=== PATIENT | male | born 1975 | race Caucasian/White ===

== ENCOUNTER 2017-08-05 16:20 | Observation (INO) | payer OTHER ==
[~2017-08-05 16:20] MED LIST: ASPIRIN COATED 81 MG TABLET.EC PO ONE
--- NOTE | 2017-08-05 17:31 | PDOC ---
Attending Attestation - Resident Resident Name: RoderickvaldobaljitDion - ED Attending Attestation I have performed the following: I have examined & evaluated the patient, The case was reviewed & discussed with the resident, I agree w/resident's findings & plan, Exceptions are as noted - HPI HPI: 08/05/17 18:06 42-year-old male presents with diffuse anterior chest wall pain with left arm paresthesias for the past several days as well as epigastric discomfort and right upper quadrant pain for the past month. - Physicial Exam PE: 08/05/17 18:06 Patient is awake and alert, nontoxic-appearing, afebrile, hemodynamically stable. HEAD: Normocephalic; atraumatic EYES: PERRL; EOM intact; no scleral icterus CARD: Normal S1, S2; no murmurs, rubs, or gallops RESP: Normal chest excursion with respiration; breath sounds clear and equal bilaterally; no wheezes, rhonchi, or rales ABD: Soft, non-distended; non-tender; liver is palpable 3 fingerbreadths below the costal margin;, no palpable hernias EXT: Normal ROM in all four extremities; non-tender to palpation; distal pulses intact SKIN: Warm, dry, no rash NEURO: No focal neurological deficiencies. - Medical Decision Making 08/05/17 18:07 42-year-old male presents to the ER with chest discomfort associated with left arm paresthesias, and abdominal pain for the past month. Differential diagnoses includes ACS versus pancreatitis versus hepatitis versus cholelithiasis versus esophagitis versus costochondritis. EKG reveals normal sinus rhythm at the rate of 77, with left axis deviation and Q waves in 3 and aVF; no old EKGs available for comparison. We'll obtain CBC/CMP/lipase/cardiac profile. We'll administer aspirin, Pepcid and Maalox. Will obtain right upper quadrant ultrasound to rule out hepatomegaly; we'll obtain chest x-ray to rule out cardiomegaly pneumothorax. Will reassess. Heart Score/ECG Review - History History: Moderately suspicious - Electrocardiogram EKG: Non specific repolarization disturbance - Age Age: </= 45 - Risk Factors Based on the list above the patient has:: No risk factors known - Troponin Troponin: </= normal limit - Score Heart Score - Total: 2
[2017-08-05] MEDS ORDERED: FAMOTIDINE 20 MG/50 ML IVPB 50 ML IVPB ONE ×2 (18:04→18:26)
[2017-08-05] MEDS ORDERED: MAG HYDROX/AL HYDROX/SIMETH 355 ML ORAL.SUSP PO ONE (18:04)
[2017-08-05 18:26] LABS: BASOPHIL 0.7 % (0-2.0); EOSINOPHIL 4.3 % (0-4.5); MCH 28.8 pg (25.7-33.7); MEAN CELL VOLUME 87.3 fl (80-96); MEAN PLT VOLUME 10.1 fl (7.5-11.1); NEUTROPHILS 60.2 % (42.8-82.8); PLATELET COUNT 176 K/MM3 (134-434); RDW 13.2 % (11.9-15.9); WHITE BLOOD COUNT 6.2 K/mm3 (4.0-10.0)
[2017-08-05] MEDS ORDERED: MAG HYDROX/AL HYDROX/SIMETH 30 ML UNIT-DOSE CUP ONE (18:26)
[2017-08-05] MEDS ORDERED: ASPIRIN 81 MG CHEWABLE TABLETS ONE (18:26)
--- NOTE | 2017-08-05 18:30 | PDOC ---
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 The patient states that his pain started 3 days ago associated with a stomach ache. The patient states that his pain is across his chest and feels like he is going to suffocate. He describes it as a sharp pain that is intermittent, does not radiate, and is worse with deep breaths. The patient is also complaining of abdominal pain that is epigastric, does not radiate, and is worse with fatty foods. No sick contacts, no recent travel. Denies fever, chills, nausea, vomiting, dysuria, rash. Past History - Past Medical History Allergies/Adverse Reactions: Allergies Allergy/AdvReac Type Severity Reaction Status Date / Time No Known Allergies Allergy Verified 08/05/17 16:41 Home Medications: Ambulatory Orders Aspirin Coated [Ecotrin -] 81 mg PO DAILY #30 tab 08/06/17 Ranitidine [Zantac -] 150 mg PO DAILY tablet 08/06/17 Thyroid Disease: No - Suicide/Smoking/Psychosocial Hx Smoking History: Never smoked Have you smoked in the past 12 months: No Information on smoking cessation initiated: No Hx Alcohol Use: No Drug/Substance Use Hx: No Substance Use Type: None Review of Systems - Review of Systems Able to Perform ROS?: Yes Is the patient limited Cymro proficient: No Constitutional: No: Chills, Fever HEENTM: No: Eye Pain, Ear Pain, Nose Pain Respiratory: Yes: Cough. No: See HPI, Shortness of Breath Cardiac (ROS): Yes: Chest Pain. No: Palpitations ABD/GI: No: Constipated, Diarrhea, Nausea, Vomiting : No: Burning, Dysuria, Pain Musculoskeletal: No: Back Pain, Muscle Pain Integumentary: No: Lesions, Lumps, Rash Neurological: No: Headache, Numbness, Tingling, Weakness *Physical Exam - Vital Signs Last Vital Signs Temp Pulse Resp BP Pulse Ox 97.6 F 84 18 120/74 100 08/05/17 16:38 08/05/17 16:38 08/05/17 16:38 08/05/17 16:38 08/05/17 16:38 - Physical Exam General Appearance: Yes: Nourished, Appropriately Dressed. No: Apparent Distress HEENT: positive: Normal Voice, Hearing Grossly Normal Respiratory/Chest: positive: Lungs Clear, Normal Breath Sounds. negative: Chest Tender, Accessory Muscle Use Cardiovascular: positive: Regular Rhythm, Regular Rate, S1, S2. negative: Diastolic Murmur, Systolic Murmur Gastrointestinal/Abdominal: positive: Tender (Tender to deep palpation over epigastric region), Flat, Soft, Hepatomegaly, Other (Negative duke's sign). negative: Distended, Guarding, Rebound Musculoskeletal: negative: CVA Tenderness, CVA Tenderness (R), CVA Tenderness (L ) Extremity: positive: Normal Inspection, Normal Range of Motion Integumentary: positive: Dry, Warm. negative: Clammy, Diaphoresis Neurologic: positive: Fully Oriented, Alert, Normal Mood/Affect, Motor Strength 5/5 Heart Score/ECG Review - History History: Moderately suspicious - Electrocardiogram EKG: Non specific repolarization disturbance - Age Age: </= 45 - Risk Factors Based on the list above the patient has:: No risk factors known - Troponin Troponin: </= normal limit - Score Heart Score - Total: 2 - ECG Intrepretation Rhythm: Regular Rhythm - Beaufort Beaufort: Left Beaufort Deviation - ECG Impressions Normal ECG: Yes ED Treatment Course - LABORATORY CBC & Chemistry Diagram: 08/06/17 06:40 08/06/17 06:40 - RADIOLOGY Radiology Studies Ordered: Category Date Time Status CHEST PA & LAT [RAD] Stat Radiology 08/05/17 17:29 Ordered ABDOMEN US -LIMITED [US] Stat Ultrasound 08/05/17 18:05 Ordered Medical Decision Making - Medical Decision Making 08/05/17 18:33 The patient is a 42M with a PMH of GERD who is presenting with chest and abdominal pain. The CP has a low likelyhood of ACS but it is still on my differential, as well as pancreatitis, cholecystitis. Will order labs and imaging and reassess. 08/05/17 19:55 Labs WNL. U/S negative for RUQ process. 08/05/17 22:18 Patient signed out to hospitalist for ACS workup in obs tele. *DC/Admit/Observation/Transfer Diagnosis at time of Disposition: Chest pain Qualifiers: Chest pain type: unspecified Qualified Code(s): R07.9 - Chest pain, unspecified - Discharge Dispostion Disposition: HOME Condition at time of disposition: Stable
[2017-08-05 19:15] LABS: ALBUMIN 3.8 g/dl (3.4-5.0); ANION GAP 8 (8-16); BILIRUBIN,TOTAL 0.2 mg/dL (0.2-1.0); CALCIUM 8.6 mg/dL (8.5-10.1); CO2 29 mmol/L (21-32); CREATININE 1.3 mg/dL (0.7-1.3); GLUCOSE,RANDOM 92 mg/dL (74-106); SGOT/AST 17 U/L (15-37); SGPT/ALT 39 U/L (12-78); TOT PROT 7.1 g/dl (6.4-8.2)
[2017-08-05 19:18] LABS: ALK PHOS 36 U/L (45-117); CPK 85 IU/L (39-308); TROPONIN I < 0.02 ng/ml (0.00-0.05)
[2017-08-06] MEDS ORDERED: RANITIDINE HCL 150 MG TABLET (FP) PO ONE (00:29)
--- NOTE | 2017-08-06 00:45 | PN ---
Teaching Attending Note Name of Resident: Mason Llamas ATTENDING PHYSICIAN STATEMENT I saw and evaluated the patient. I reviewed chart, data, and imaging. I reviewed the resident's note and discussed the case with the resident. I agree with the resident's findings and plan as documented with modifications below. SUBJECTIVE: 42-year-old male c/o right sided chest pain which began yesterday around midday. Chest pain was not related to exertion. It lasted briefly and subsided. No history of any cardiac issues. Denied nausea, vomiting, diarrhea, trauma. Troponin negative x1. Lipase wnl OBJECTIVE: Last Vital Signs Temp Pulse Resp BP Pulse Ox 97.6 F 84 18 120/74 100 08/05/17 16:38 08/05/17 16:38 08/05/17 16:38 08/05/17 16:38 08/05/17 16:38 general- NAD, conversing, follows commands heent- no sinus tenderness, neck supple, no masses cv s1+S2+ RRR chest-CTA b/l abdomen -soft, nt skin -no rashes noted Abnormal Lab Results 08/05/17 18:17 Alkaline Phosphatase 36 L CXR - wnl troponin negative x1 EKG - Non specific repolarization disturbance ASSESSMENT AND PLAN: #Atypical chest pain in overwise healthy 42yo male. Chest may be costochonditis , GERD. ACS should be r/o troponin negative x1. -admit to tele/observation -trend troponins -ASA 81mg daily -nexium 40mg po daily #DVT ppx -SCDs # Diet -2g Na diet
--- NOTE | 2017-08-06 01:01 | HP ---
CHIEF COMPLAINT: chest pain PCP: HISTORY OF PRESENT ILLNESS: Patient is [place]araguan speaking. history obtained via global supply chain director ([id number]) The patient is a 42 yo m w/ no PMH who presents to the ED c/o a 1 week history of pain in his chest and abdomen. The patient states that he was sitting down when he had an abrupt onset of sharp pain in his chest and abdomen. The pain lasted approximately 1/2 hr, then went away on its own. Since this initial event , he has been having a similar pain intermittently. The pain is worse with inspiration and associated with headache. The patient has had previous episodes of this pain and saw a doctor about it, but was lost to follow up. Patient denies nausea, vomiting, diarrhea, palpitations arm weakness or numbness, shortness of breath, dyspnea on exertion.. ER course was notable for: (1) negative trop x1 (2) EKG showing nonspecific changes (3) Recent Travel: none PAST MEDICAL HISTORY: none PAST SURGICAL HISTORY: -hernia repair -appendectomy Social History: Smoking: denies Alcohol: socially Drugs: denies Family History: denies Allergies No Known Allergies Allergy (Verified 08/05/17 16:41) HOME MEDICATIONS: Home Medications Medication Instructions Recorded NK [No Known Home Medication] 08/05/17 REVIEW OF SYSTEMS CONSTITUTIONAL: Absent: fever, chills, diaphoresis, generalized weakness, malaise, loss of appetite, weight change HEENT: Absent: rhinorrhea, nasal congestion, throat pain, throat swelling, difficulty swallowing, mouth swelling, ear pain, eye pain, visual changes CARDIOVASCULAR: Absent: syncope, palpitations, irregular heart rate, lightheadedness, peripheral edema RESPIRATORY: Absent: cough, shortness of breath, dyspnea with exertion, orthopnea, wheezing, stridor, hemoptysis GASTROINTESTINAL: Absent: abdominal distension, nausea, vomiting, diarrhea, constipation, melena, hematochezia GENITOURINARY: Absent: dysuria, frequency, urgency, hesitancy, hematuria, flank pain, genital pain MUSCULOSKELETAL: Absent: myalgia, arthralgia, joint swelling, back pain, neck pain SKIN: Absent: rash, itching, pallor HEMATOLOGIC/IMMUNOLOGIC: Absent: easy bleeding, easy bruising, lymphadenopathy, frequent infections ENDOCRINE: Absent: unexplained weight gain, unexplained weight loss, heat intolerance, cold intolerance NEUROLOGIC: Absent: focal weakness or paresthesias, dizziness, unsteady gait, seizure, mental status changes, bladder or bowel incontinence PSYCHIATRIC: Absent: anxiety, depression, suicidal or homicidal ideation, hallucinations. PHYSICAL EXAMINATION GENERAL: Awake, alert, and fully oriented, in no acute distress. HEAD: Normal with no signs of trauma. EYES: Pupils equal, round and reactive to light, extraocular movements intact, sclera anicteric, conjunctiva clear. No lid lag. NECK: Normal range of motion, supple without lymphadenopathy, JVD, or masses. LUNGS: Breath sounds equal, clear to auscultation bilaterally. No wheezes, and no crackles. No accessory muscle use. HEART: Regular rate and rhythm, normal S1 and S2 without murmur, rub or gallop. ABDOMEN: Soft, nontender, not distended, normoactive bowel sounds, no guarding, no rebound, no masses. UPPER EXTREMITIES: 2+ pulses, warm, well-perfused. No cyanosis. No clubbing. No peripheral edema. LOWER EXTREMITIES: 2+ pulses, warm, well-perfused. No calf tenderness. No peripheral edema. NEUROLOGICAL: Cranial nerves II-X intact. Normal speech. gait not observed. PSYCHIATRIC: Cooperative. Good eye contact. Appropriate mood and affect. SKIN: Warm, dry, normal turgor, no rashes or lesions noted, normal capillary refill. ASSESSMENT/PLAN: The patient is a 42 yo m w/ no pnh who presents to the ed c/o chest and abdominal pain. He is admitted for observation. #Chest and abdominal pain likely 2/2 GERD r/o ACS -trend troponin stat and in AM -zantac prn pain -s/p ASA 162 x1 in ED -observe overnight -cbc, cmp, mag, phos in AM #FEN -no fluids indicated -monitor lytes -regular diet #prophy -SCDs #dispo -admit overnight for obs Visit type - Emergency Visit Emergency Visit: Yes ED Registration Date: 08/05/17 Care time: The patient presented to the Emergency Department on the above date and was hospitalized for further evaluation of their emergent condition. - New Patient This patient is new to me today: Yes Date on this admission: 08/06/17 - Critical Care Critical Care patient: No
[2017-08-06 01:54] VITALS: BMI 29.7
[2017-08-06 07:38] LABS: MCH 28.9 pg (25.7-33.7); MCHC 33.2 g/dl (32.0-35.9); MEAN CELL VOLUME 87.2 fl (80-96); MEAN PLT VOLUME 9.9 fl (7.5-11.1); PLATELET COUNT 167 K/MM3 (134-434); RDW 13.3 % (11.9-15.9); WHITE BLOOD COUNT 5.1 K/mm3 (4.0-10.0)
[2017-08-06 07:56] LABS: ALBUMIN 3.6 g/dl (3.4-5.0); ANION GAP 7 (8-16); BILIRUBIN,TOTAL 0.7 mg/dL (0.2-1.0); CALCIUM 8.3 mg/dL (8.5-10.1); CO2 30 mmol/L (21-32); CREATININE 1.1 mg/dL (0.7-1.3); GLUCOSE,RANDOM 81 mg/dL (74-106); MAGNESIUM 2.2 mg/dL (1.8-2.4); PHOSPHOROUS 2.6 mg/dL (2.5-4.9); SGOT/AST 14 U/L (15-37); SGPT/ALT 38 U/L (12-78); TOT PROT 6.9 g/dl (6.4-8.2)
[2017-08-06 07:59] LABS: ALK PHOS 32 U/L (45-117); TROPONIN I < 0.02 ng/ml (0.00-0.05)
[2017-08-06] MEDS ORDERED: ASPIRIN COATED 81 MG TABLET.EC PO SCH (10:00)
[2017-08-06] MEDS ORDERED: RANITIDINE HCL 150 MG TABLET (FP) PO SCH (10:00)
--- NOTE | 2017-08-06 10:08 | DS ---
Physical Exam: SUBJECTIVE: Patient seen and examined at the bedside. He denies abdominal pain, denies chest pain or shortness of breath. OBJECTIVE: His chest pain/abdominal pain are now resolved Trop negative x 3 Tolerated breakfast, no abdominal discomfort. Patient to follow up outpatient with GI specialist Patient has PCP at [facility] he has not seen over a year. Vital Signs Period Temp Pulse Resp BP Sys/Cárdenas Pulse Ox Last 24 Hr 97.3 F-97.6 F 59-62 18-18 110-127/70-81 98 PHYSICAL EXAM GENERAL: The patient is awake, alert, and fully oriented, in no acute distress. HEAD: Normal with no signs of trauma. EYES: PERRL, extraocular movements intact, sclera anicteric, conjunctiva clear. ENT: Ears normal, nares patent, oropharynx clear without exudates, moist mucous membranes. NECK: Trachea midline, full range of motion, supple. LUNGS: Breath sounds equal, clear to auscultation bilaterally, no wheezes, no crackles, no accessory muscle use. HEART: Regular rate and rhythm, S1, S2 without murmur, rub or gallop. ABDOMEN: Soft, nontender, nondistended, normoactive bowel sounds, no guarding, no rebound, no hepatosplenomegaly, no masses. EXTREMITIES: 2+ pulses, warm, well-perfused, no edema. NEUROLOGICAL: Cranial nerves II through XII grossly intact. Normal speech, gait not observed. PSYCH: Normal mood, normal affect. SKIN: Warm, dry, normal turgor, no rashes or lesions noted. LABS Laboratory Results - last 24 hr 08/06/17 08/06/17 08/06/17 01:00 06:40 06:40 WBC 5.1 RBC 5.40 Hgb 15.6 Hct 47.1 MCV 87.2 MCH 28.9 MCHC 33.2 RDW 13.3 Plt Count 167 MPV 9.9 Sodium 142 Potassium 4.1 Chloride 105 Carbon Dioxide 30 Anion Gap 7 L BUN 14 Creatinine 1.1 Creat Clearance w eGFR > 60 Random Glucose 81 Calcium 8.3 L Phosphorus 2.6 Magnesium 2.2 Total Bilirubin 0.7 D AST 14 L ALT 38 Alkaline Phosphatase 32 L Troponin I < 0.02 < 0.02 Total Protein 6.9 Albumin 3.6 HOSPITAL COURSE: Date of Admission:08/06/17 Date of Discharge: 08/06/17 The patient is a 42 year old male with a past medical history of GERD. He presented to the ER on 08/06/2017 with c/o of chest and abdominal pain x 1 week. He described this pain on his chest and abdomen as an abrupt onset and sharp that lasted apx half hour and then subsided. He states the chest pain was worse when taking in a deep breath. He denies nausea, vomiting, diarrhea, palpitations arm weakness or numbness, shortness of breath, dyspnea on exertion. Cardiology: Chest pain - resolved A/P: Sudden onset at home x 1 week, intermittent He denies any chest pain, shortness of breath Troponins negative x 3, EKG NSR 77, playground monitor NSR 70s Now resolved, Given ASA 162mg in ED Will continue on ASA 81mg daily Zantact daily Labs, vitals all within normal limits GI: Abdominal Pain - resolved A/P: abdominal pain resolved, pt denies nausea, vomiting or diarrhea Hx of GERD, asking for a GI consult, had previously had EGD and colonscopy Electrolytes within normal limits Zantac daily Disposition. Discharge home with PCP follow up. GI referral given. Full code. Minutes to complete discharge: 45 Discharge Summary Reason For Visit: CHEST PAIN Condition: Stable - Instructions Diet, Activity, Other Instructions: Mr. Alamo: Por favor de regresar para el cuarto de emergencia si tienes dolor de pecho. Neuva medicinas: aspirin 81mg howie vez al el jennifer Zantac or Pepcid Por favor de ser howie fam con el doctor Minnie. Por favor de iwlliams a packer doctor Angel Sams en [facility] en howie semana. Please return to the ER with any new or worsening symptoms New medications: Aspirin 81mg daily Zantac daily Please follow up with new referral, Dr. Hartman Please see your PCP dr. Sams @ [facility] within 1 week after discharge Cathy Dwyer [place] [phone] [facility] @ [facility] Referrals: Silvio Hartman MD [Staff Physician] - Disposition: HOME - Home Medications Comprehensive Discharge Medication List: Ambulatory Orders Aspirin Coated [Ecotrin -] 81 mg PO DAILY #30 tab 08/06/17 Ranitidine [Zantac -] 150 mg PO DAILY tablet 08/06/17 This patient is new to me today: Yes Date on this admission: 08/06/17 Emergency Visit: Yes ED Registration Date: 08/06/17 Care time: The patient presented to the Emergency Department on the above date and was hospitalized for further evaluation of their emergent condition. Critical Care patient: No - Discharge Referral Referred to [facility] No
[2017-08-06 10:26] VITALS: BP 121/78; PULSE 88; TEMP 98.8
--- NOTE | 2017-08-08 07:18 | EKG ---
Test Reason : Blood Pressure : / mmHG Vent. Rate : 077 BPM Atrial Rate : 077 BPM P-R Int : 150 ms QRS Dur : 088 ms QT Int : 388 ms P-R-T Axes : 053 -47 060 degrees QTc Int : 439 ms NORMAL SINUS RHYTHM LEFT ANTERIOR FASCICULAR BLOCK POSSIBLE INFERIOR INFARCT , AGE UNDETERMINED ABNORMAL ECG NO PREVIOUS ECGS AVAILABLE Confirmed by KAITY HATFIELD MD ([id number]) on 08/08/2017 7:18:35 AM Referred By: Confirmed By:KAITY HATFIELD MD
== END 2017-08-06 01:55 | disposition home or self-care (01) ==
LOC: JER 16:20 → INTOOBSV 21:21 → JERBED 21:21 → UNDOADMOB 21:21 → JERBED 08-06 00:15 → J4S 08-06 02:43
PROVIDERS: ADMIT Internal Medicine; ATTEND Nurse Practitioner Family
PROC: 3E033GC Introduction of Other Therapeutic Substance into Peripheral Vein, Percutaneous Approach (ICD-10-PCS; principal; 2017-08-06)
DX: R07.89 Other chest pain (principal); R10.9 Unspecified abdominal pain; K21.9 Gastro-esophageal reflux disease without esophagitis
CPT/HCPCS: 36415; 71020-TC; 76705-TC; 80053; 82550; 83690; 83735; 84100; 84484; 85025; 85027; 93005; 93010; 96365; 99285-25; G0378